=== PATIENT | female | born 1985 | race Hispanic/Latino ===

== ENCOUNTER 2017-02-13 07:47 | Day surgery (SDC) | payer BC ==
[2016-06-08 14:25] VITALS: BMI 24.3
[2017-02-13] MEDS ORDERED: Lactated Ringer's 500 ML IV ONE (08:42)
[2017-02-13] MEDS ORDERED: Midazolam 2 MG/2 ML VIAL ONE (10:26)
[2017-02-13] MEDS ORDERED: Propofol 10 mg/ml Inj (20 ML) ONE (10:38)
[2017-02-13 10:53] VITALS: TEMP 97
[2017-02-13 11:12] VITALS: BP 124/60; PULSE 62; RESP 14; O2SAT 100
== END 2017-02-13 11:32 | disposition home or self-care (01) ==
LOC: H.ENDO 07:47
PROVIDERS: ATTEND Internal Medicine Gastroenterology
DX: R10.11 Right upper quadrant pain (principal); J45.909 Unspecified asthma, uncomplicated; K44.9 Diaphragmatic hernia without obstruction or gangrene; K29.70 Gastritis, unspecified, without bleeding; R10.13 Epigastric pain; R10.12 Left upper quadrant pain
CPT/HCPCS: 43239; 88305; J2250; J2704; J7120